=== PATIENT | female | born 1925 | race Caucasian/White ===

== ENCOUNTER → 2016-12-04 | Outpatient (CLI) | payer MEDICARE ==
[~2016-12-04] MED LIST: ALENDRONATE SOD70 M1 PO; CALCIUM +D & M1 EACH PO; CALCIUM PO; CALCIUM1 CAP PO; CEPHULAC10 GM/15 M PO; CITRACAL + D 311 TAB PO; COLACE100 MG PO; DARVOCET N 1001 TAB PO; FEOSOL,FER300 MG/5 M PO; FEOSOL50 MG PO; FERROUS SULFAT325 M1 PO; FOSAMAX70 MG PO; HYDROCODONE BIT1 T11 PO; IRON50 MG PO; LIBRIUM5 MG PO; Lovenox40 MG/0.4 PO; MULTI VITAMINS1 TAB PO; MULTIPLE VITAMI1 CAP PO; PERCOCET 325 MG1 TA2 PO; PROTONIX40 MG PO; TRAMADOL50 MG PO; ULTRAM50 MG PO; VICODIN 500 MG-1 TAB PO; VITAMIN C1 TAB PO; ZOFRAN4 MG PO
[2016-12-04 12:11] LABS: IRON 84 ug/dL (50-170); IRON SATURATION 20 %; UIBC 334 ug/dL (110-365)
[2016-12-04 13:10] LABS: FOLIC ACID > 24.00 ng/mL (>5.38)
== END | disposition home or self-care (01) ==
LOC: LAB 11:24
PROVIDERS: Internal Medicine
DX: D50.8 Other iron deficiency anemias (principal)